=== PATIENT | male | born 1980 | race Caucasian/White ===

== ENCOUNTER 2020-04-29 11:05 | Outpatient (REF) | payer OTHER, SELFPAY ==
[2020-04-29 14:15] LABS: Alanine Aminotransferase 28 U/L (0-40); Albumin Level 4.6 g/dL (3.5-5.0); Alkaline Phosphatase 66 U/L (39-117); Anion Gap 17 (12-20); Aspartate Amino Transferase 23 U/L (5-37); Bilirubin Total 0.9 mg/dL (0.0-1.0); Blood Urea Nitrogen 11 mg/dL (9-16); Calcium 9.2 mg/dL (8.4-10.2); Carbon Dioxide 24 mmol/L (22-29); Chloride 102 mmol/L (96-108); Cholesterol 164 mg/dL; Estimated Glomerular Filt Rate > 60; Glucose Fasting 71 mg/dL (60-99); HDL Cholesterol 35 mg/dL; LDL Cholesterol Calculated 110 mg/dl; Potassium 4.7 mmol/l (3.3-5.1); Sodium 138 mmol/L (135-145); Total Protein 7.7 g/dL (6.5-8.0); Triglycerides 96 mg/dL
[2020-04-29 14:51] LABS: Syphilis Screen Nonreactive (Nonreactive)
[2020-05-02 08:06] LABS: HBc Num1 0.09 S/CO (0.00-0.79); HBsAGNum1 0.24 S/CO (0.00-0.99); Hepatitis B Core Antibody Nonreactive (Nonreactive); Hepatitis B Surface Antigen Negative (Negative)
[2020-05-02 08:32] LABS: HBS Num1 0.36 mIU/mL (0-7.99); HIV AB/AG Nonreactive (Nonreactive); HIV Num 1 0.15 S/CO (0.00-0.99); ~HepC Num1 0.18 S/CO (0.00-0.79); ~Hepatitis B Surface Antibody NONREACTIVE (Nonreactive); ~Hepatitis C Antibody Nonreactive (Nonreactive)
== END 2020-04-29 11:06 | disposition home or self-care (01) ==
LOC: HO.WFDLDS 11:05
PROVIDERS: Visit Provider Family Medicine
DX: Z00.00 Encounter for general adult medical examination without abnormal findings (principal); Z11.3 Encounter for screening for infections with a predominantly sexual mode of transmission
CPT/HCPCS: 80053; 80061; 84443; 86704; 86706; 86780; 86803; 87340; 87389

== ENCOUNTER 2021-12-05 09:26 | Outpatient (REF) | payer BC, SELFPAY ==
[2021-12-05 12:07] LABS: Appearance Urine CLEAR; Color Urine YELLOW; Glucose Urine UA NEG (NEG); Leukocyte Esterase Urine NEG (NEG); Nitrite Urine NEG (NEG); PH 5.5 (5.0-8.0); Specific Gravity - Urine 1.025 (1.005-1.025); Urine Blood NEG (NEG); Urine Ketones NEG (NEG); Urine Protein NEG (NEG-TRACE)
[2021-12-05 12:18] LABS: Alanine Aminotransferase 20 U/L (0-40); Albumin Level 4.1 g/dL (3.5-5.0); Alkaline Phosphatase 55 U/L (39-117); Anion Gap 13 (12-20); Aspartate Amino Transferase 16 U/L (5-37); Bilirubin Total 0.4 mg/dL (0.0-1.0); Blood Urea Nitrogen 15 mg/dL (9-16); Carbon Dioxide 24 mmol/L (22-29); Chloride 107 mmol/L (96-108); Cholesterol 227 mg/dL; Estimated Glomerular Filt Rate > 60; Glucose Fasting 87 mg/dL (60-99); HDL Cholesterol 42 mg/dL; LDL Cholesterol Calculated 135 mg/dl; Potassium 4.2 mmol/L (3.3-5.1); Sodium 140 mmol/L (135-145); Total Protein 7.2 g/dL (6.5-8.0); Triglycerides 252 mg/dL
[2021-12-05 12:32] LABS: Prostate Specific Antigen Scr 0.53 ng/mL (<0.05-4.0); TSH reflex Free T4 1.27 uIU/mL (0.32-4.0)
== END 2021-12-05 09:27 | disposition home or self-care (01) ==
LOC: HO.WFDLDS 09:26
PROVIDERS: Visit Provider Family Medicine
DX: Z00.00 Encounter for general adult medical examination without abnormal findings (principal); Z12.5 Encounter for screening for malignant neoplasm of prostate
CPT/HCPCS: 36415; 80053; 80061; 81003; 84153; 84443

== ENCOUNTER 2023-05-24 08:51 | Outpatient (AMB) | payer BC, SELFPAY ==
--- NOTE | 2023-05-24 08:51 | MHC.PC.OV ---
Vital Signs 05/24/23 08:53 Height 5 ft 11 in Weight 285 lb 8 oz BMI 39.8 BP 122/62 Blood Pressure Location Lt brachial Position Sitting Pulse 82 Pulse Source Pulse Oximeter Pulse Oximetry (%) 96 Oxygen Delivery Method Room Air Intake Visit Reasons: ongoing pain Intake Note: Patient is here with dull pain in left testicle that radiates to his body, pain in left front abdomen. Allergies No Known Allergies Allergy (Verified 05/24/23 08:55) Tobacco use date assessed: 05/24/23 Dental Screening Dental Screen Date: 05/24/23 Did you have a dental visit in the last 12 months?: Yes Did you have a dental problem in the last 6 months where you did not have access to dental care?: No Was dental information given to patient?: Patient has dentist HPI ongoing pain HPI Details Pt presents today with complaints of ongoing L testicular pain. Pain radiates to his body and reports pain in L front abdomen. Was diagnosed with epididymitis 02/12/22 and was treated with Levaquin. He notes pain has never fully resolved, He still reports intermittent dull aches. He also reports abdominal pain is intermittent. [facility] Social History Housing: Apartment Patient Tobacco Use Status: Former Tobacco user e-Cigarette/Vaping Use: Never Used Second Hand Smoke Exposure: No service: No Current occupational status: employed Current occupational exposures/hazards: No Cognitive needs: No Hearing needs: No Vision needs: No Questionnaire PHQ-9 Over the last 2 weeks, how often have you been bothered by any of the following problems? 1. Little interest or pleasure in doing things: more than half the days 2. Feeling down, depressed, or hopeless: several days 3. Trouble falling or staying asleep, or sleeping too much: nearly every day 4. Feeling tired or having little energy: nearly every day 5. Poor appetite or overeating: more than half the days 6. Feeling bad about yourself - or that you are a failure or have let yourself or your family down: not at all 7. Trouble concentrating on things, such as reading the newspaper or watching television: nearly every day 8. Moving or speaking so slowly that other people could have noticed. Or the opposite - being so fidgety or restless that you have been moving around a lot more than usual: not at all 9. Thoughts that you would be better off or of hurting yourself in some way: not at all Total score: 14 Depression Screening Interpretation: Positive Depression Screening Done: Yes Source: Developed by Drs. Earl Brambila, Nora Penn, Anival Okeefe and colleagues, with an educational maite from [employer]. Thrive Questionnaire Date Thrive assessed: 05/24/23 I am a: Patient What is your living situation today?: I have a steady place to live Within the past 12 months, did the food you bought not last and you didn't have the money to get more?: Never true Within the past 12 months, did you worry whether your food would run out before you got money to buy more?: Never true Do you have trouble paying for medicines?: No Do you have trouble getting transportation to medical appointments?: No Do you have trouble paying your heating and electricity bill?: No Do you have trouble taking care of your child, family member or friend?: No Do you have trouble with day-to-day activities such as bathing, preparing meals, shopping, managing finances, etc.?: No Are you currently unemployed and looking for a job?: No Are you interested in more education?: Yes AUDIT C Alcohol Use Questionnaire (AUDIT-C) 1. How often do you have a drink containing alcohol?: 2-3 times a week 2. How many drinks containing alcohol do you have on a typical day when you are drinking?: 5 or 6 3. How often do you have six or more drinks on one occasion?: Less than monthly Total Score: 6 DARYL-7 AMB Questionnaire DARYL-7 Date DARYL - 7 assessed: 05/24/23 Feeling nervous, anxious, or on edge: 1 = Several days Not being able to stop or control worryin = More than half the days Worrying too much about different things: 2 = More than half the days Trouble relaxin = Not at all Being so restless that it is hard to sit still: 1 = Several days Becoming easily annoyed or irritable: 1 = Several days Feeling afraid as if something awful might happen: 1 = Several days Total DARYL-7 score (0-4 normal; 5-9 mild; 10-14 moderate; 15-21 severe): 8 Source: Developed by Drs. Earl Brambila, Nora Penn, Anival Okeefe and colleagues, with an educational maite from [employer]. Review of Systems Const Denies chills, Denies fatigue, Denies fever(s), Denies headache(s) and Denies weakness ENT Denies dizziness and Denies headache(s) Card Denies dyspnea Resp Denies cough, Denies dyspnea, Denies wheezing and Denies other (shortness of breath) Musc Denies numbness and Denies tingling Neuro Denies dizziness, Denies headache(s), Denies numbness, Denies tingling and Denies weakness Psych Denies anxiety and Denies depression Endo Denies fatigue Aller/Immun Denies wheezing Physical exam (Primary Care) Vital Signs: Last Vital Signs Pulse 82 05/24/23 08:53 BP 122/62 05/24/23 08:53 Pulse Ox 96 05/24/23 08:53 Oxygen Delivery Method Room Air 05/24/23 08:53 BMI result Body Mass Index 39.8 Tobacco/Smoking Status: Tobacco use Status Tobacco use date assessed 05/24/23 05/24/23 08:56 Patient Tobacco Use Status Former Tobacco user 05/24/23 08:51 e-Cigarette/Vaping Use Never Used 05/24/23 08:51 PHQ-9: PHQ-9 Score PHQ-9: Total score 14 05/24/23 09:15 Depression Screening Interpretation: Positive Thrive Assessment: Date of Thrive Assessment Date Thrive assessed 05/24/23 05/24/23 09:05 Const General: well developed; No acute distress Nutritional Appearance: well nourished Orientation/consciousness: patient oriented x3 [facility] Head: Yes normocephalic and Yes atraumatic Eyes General: appearance normal, both eyes and all related structures Pupils: Equal, round and reactive pupils present EOM: EOMs intact bilaterally Resp Effort & Inspection: normal respiratory effort Neuro General: patient oriented x3 and gait normal Cranial nerves: Yes Equal, round and reactive pupils present Psych Affect: normal affect Assessment and Plan Assessment & Plan (1) Left testicular pain: Code(s): N50.812 - Left testicular pain Plan: Ongoing?left?testicular?pain?after?epididymitis?and?treatment?with?levofloxacin Testicle?is?no?longer?enlarged?or?inflamed.??Palpation?did?not?reveal?any?masses?or?lumps. No?hernias?appreciated Will?check?urine?studies Check?ultrasound Will?give?him?a?script?for?doxycycline Referred?to?Urology (2) Abdominal pain: Code(s): R10.9 - Unspecified abdominal pain Plan: Likely?referred?pain Empirically?treating?with?doxycycline He?will?let?me?know?if?not?improved Orders: Orders CT NG by PCR Today N50.812 - Left testicular pain, Z11.3 - Encounter for screening for infections with a predominantly sexual mode of transmission US scrotum Today N50.812 - Left testicular pain Referrals Urology Referral N50.812 - Left testicular pain Coding Level of Care Code Est Pt Level 3 (02616) Diagnoses Left testicular pain N50.812 Abdominal pain R10.9
[2023-05-24 08:53] VITALS: BP 122/62; PULSE 82; O2SAT 96; BMI 39.8
== END 2023-05-24 09:47 | disposition home or self-care (01) ==
PROVIDERS: PCP Family Medicine; Visit Provider Family Medicine
DX: N50.812 Left testicular pain (principal); R10.9 Unspecified abdominal pain
CPT/HCPCS: 99213

== ENCOUNTER 2023-05-24 09:37 | Outpatient (REF) | payer BC, SELFPAY ==
[2023-05-24 11:34] LABS: Appearance Urine Clear; Color Urine Yellow; Glucose Urine UA Negative (Negative); Leukocyte Esterase Urine Negative (Negative); Nitrite Urine Negative (Negative); PH 5.5 (5.0-9.0); Urine Blood Negative (Negative); Urine Ketones Negative (Negative); Urine Protein Negative (Neg-Trace)
[2023-05-24 13:27] LABS: CT PCR NOT DETECTED (Not Detect.); NG PCR NOT DETECTED (Not Detect.)
== END 2023-05-24 09:38 | disposition home or self-care (01) ==
LOC: HO.LAB 09:37
PROVIDERS: Visit Provider Family Medicine
DX: Z00.00 Encounter for general adult medical examination without abnormal findings (principal); N50.812 Left testicular pain; Z20.2 Contact with and (suspected) exposure to infections with a predominantly sexual mode of transmission
CPT/HCPCS: 0353U; 81003

== ENCOUNTER 2023-06-12 16:11 | Outpatient (REF) | payer BC, SELFPAY | END 2023-06-12 16:12 | disposition home or self-care (01) | LOC: HO.US 16:11 | PROVIDERS: PCP Family Medicine; Visit Provider Family Medicine | DX: N50.812 Left testicular pain (principal) | CPT/HCPCS: 76870 ==

== ENCOUNTER 2023-07-05 14:47 | Outpatient (AMB) | payer BC, SELFPAY ==
--- NOTE | 2023-07-05 15:00 | A.OFFVIS_ITS ---
Intake Intake Visit Reasons: Left testicular pain Intake Note: NEW Patient presents today to established treatment for Left Testicular Pain: Meds- None Allergies to Antibiotic- No Known Allergies Blood Thinner- None Timber Buyer Required: No Accompanied by: Self / Same As Patient Allergies No Known Allergies Allergy (Verified 07/05/23 15:04) HPI HPI Comments History of Present Illness Details Rafa is a 43-year-old male who is here as a new patient evaluation for complaints of chronic left testicular pain. He also complains of pain in his lower abdomen on the left side. He states he was diagnosed with epididymitis in February of 2022 and received a course of antibiotics, Levaquin He had a scrotal ultrasound done on 06/14/23 which I have reviewed, small bilateral varicoceles left testicle a few microliths noted. No signs of infection or testicular masses noted. I have discussed using Tylenol or Motrin p.r.n. as well as timed voiding. Will check ultrasound of the kidneys. [facility] Social History Housing: Apartment Patient Tobacco Use Status: Former Tobacco user e-Cigarette/Vaping Use: Never Used Second Hand Smoke Exposure: No service: No Current occupational status: employed Current occupational exposures/hazards: No Cognitive needs: No Hearing needs: No Vision needs: No Review of Systems Const All systems reviewed & are unremarkable except as noted in HPI and below Reports no additional complaints Eyes Reports no additional complaints ENT Reports no additional complaints Card Denies dyspnea Resp Denies cough and Denies dyspnea GI Reports no additional complaints Musc Reports no additional complaints Skin/Breast Denies rash and Denies unusual bruising Neuro Reports no additional complaints Psych Reports no additional complaints Endo Reports no additional complaints Antonio/Lymph Reports no additional complaints Aller/Immun Reports no additional complaints Physical Exam Const General: healthy appearing, no acute distress and well developed Orientation/consciousness: patient oriented x3 HEENT Head: Yes normocephalic and Yes atraumatic Eyes Conjunctivae: conjunctivae normal Neck Neck: Yes normal visual inspection Chest Chest palpation & inspection: normal inspection of the chest Resp Effort & Inspection: normal respiratory effort Cardio Rate: regular rate GI Inspection: Yes normal to inspection Palpation (GI): Soft to palpation Penis: normal penis Scrotum: scrotum normal Skin General skin exam: no rashes or lesions noted Neuro General: patient oriented x3 Extrem General: No pedal edema Psych Appearance: grossly normal Affect: normal affect Results AMB Urinalysis, Automated UA Leukoctes 0 Mendel/uL Last Edit by Jessica Escamilla Neil on 07/05/23 15:10 UA Nitrite Negative Last Edit by Jessica Escamilla [facility] on 07/05/23 15:10 UA Urobilinogen 0.2 mg/dL Last Edit by Jessica Escamilla [facility] on 07/05/23 15:1 0 UA Protein 30 mg/dL Last Edit by Jessica Escamilla [facility] on 07/05/23 15:10 1+ Jessica Escamilla 07/05/23 15:10 UA pH 5.5 Last Edit by Jessica Escamilla [facility] on 07/05/23 15:10 UA Blood 0 Christian/uL Last Edit by Jessica Escamilla [facility] on 07/05/23 15:10 UA Specific Wilmot 1.030 Last Edit by Jessica Escamilla [facility] on 07/05/23 15: 10 UA Ketone Negative Last Edit by Jessica Escamilla [facility] on 07/05/23 15:10 UA Bilirubin 0 mg/dL Last Edit by Jessica Escamilla [facility] on 07/05/23 15:10 UA Glucose 0 mg/dL Last Edit by Jessica Escamilla [facility] on 07/05/23 15:10 Results Reviewed Results Reviewed: Laboratory Last Values Urine pH (Auto) 5.5 07/05/23 15:05 Specific Wilmot (Auto) 1.030 07/05/23 15:05 Urine Protein (Auto) 30 mg/dL 07/05/23 15:05 Glucose (UA)(Auto) 0 mg/dL 07/05/23 15:05 Urine Ketones (Auto) Negative 07/05/23 15:05 Urine Blood (Auto) 0 Christian/uL 07/05/23 15:05 Urine Nitrite (Auto) Negative 07/05/23 15:05 Urine Bilirubin (Auto) 0 mg/dL 07/05/23 15:05 Urine Urobilinogen (Auto) 0.2 mg/dL 07/05/23 15:05 Leukocyte Esterase (Auto) 0 Mendel/uL 07/05/23 15:05 Date of Service: 06/12/23 EXAMINATION: US SCROTUM CLINICAL INFORMATION: Left testicular pain. COMPARISON: None available. TECHNIQUE: A sonogram of the scrotum was performed assessing vigil-scale appearance and color Doppler flow. Spectral Doppler analysis of the arterial and venous flow were performed in the testes bilaterally. FINDINGS: RIGHT: Right testicle measures 4.2 x 2.6 x 3.1 cm, volume 17.7 mL. A few microliths are present. Spectral Doppler analysis of the arterial and venous flow is normal in the right testis. Right epididymal head is normal in size. No right hydrocele is seen. Right varicocele. Right epididymal Doppler flow is normal. LEFT: Left testicle measures 4.1 x 2.5 x 3.5 cm, volume 18.7 mL. A few microliths are present. Spectral Doppler analysis of the arterial and venous flow is normal in the left testis. Left epididymal head is normal in size. No left hydrocele is seen. Left varicocele. Left epididymal Doppler flow is normal. IMPRESSION: Bilateral varicoceles. Assessment & Plan Assessment & Plan (1) Abdominal pain: Code(s): R10.9 - Unspecified abdominal pain (2) Left testicular pain: Code(s): N50.812 - Left testicular pain (3) History of orchitis: Code(s): Z87.438 - Personal history of other diseases of male genital organs Plan Renal ultrasound follow-up in 2 months Orders: Orders AMB Urinalysis Automated 07/05/23 Z13.9 - Encounter for screening, unspecified US retroperitoneal comp 07/05/23 R10.9 - Unspecified abdominal pain, N50.812 - Left testicular pain, Z87.438 - Personal history of other diseases of male genital organs Coding Level of Care Code New Pt Level 3 (90676) Diagnoses Abdominal pain R10.9 Left testicular pain N50.812 History of orchitis Z87.438
== END 2023-07-05 16:02 | disposition home or self-care (01) ==
PROVIDERS: PCP Family Medicine; Visit Provider Urology
DX: R10.9 Unspecified abdominal pain (principal); N50.812 Left testicular pain; Z87.438 Personal history of other diseases of male genital organs
CPT/HCPCS: 99203

== ENCOUNTER → 2023-07-05 14:47 | Outpatient (BNVA) | payer BC, SELFPAY | PROVIDERS: PCP Family Medicine; Visit Provider Urology | DX: N50.812 Left testicular pain (principal); R10.9 Unspecified abdominal pain; Z87.438 Personal history of other diseases of male genital organs | CPT/HCPCS: 81003 ==

== ENCOUNTER 2023-08-28 13:53 | Outpatient (REF) | payer BC, SELFPAY ==
--- NOTE | ~2023-08-28 | US_ITS ---
EXAMINATION: US RETROPERITONEAL COMPLETE (RENAL) CLINICAL INFORMATION: Unspecified abdominal pain. Please measure prostate. COMPARISON: None available. TECHNIQUE: Real-time imaging of the kidneys and bladder. FINDINGS: RIGHT KIDNEY: 11.8 x 5.6 x 5.8 cm (SAG x AP x TRV). The kidney is normal in size, contour, and echogenicity. Renal cortical thickness is normal. No calculi or focal parenchymal lesions. No hydronephrosis. LEFT KIDNEY: 11.9 x 5.7 x 6.2 cm (SAG x AP x TRV). The kidney is normal in size, contour, and echogenicity. Renal cortical thickness is normal. No calculi or focal parenchymal lesions. No hydronephrosis. BLADDER: Well distended and normal. Bilateral ureteral jets are demonstrated. Prevoid bladder volume is 811 mL. Postvoid bladder volume is 23.6 mL. ADDITIONAL FINDINGS: The prostate gland is not visualized. US/US retroperitoneal comp IMPRESSION: 1. Unremarkable ultrasound appearance of the kidneys. 2. The prostate gland is not presently identified with ultrasound technique.
== END 2023-08-28 13:54 | disposition home or self-care (01) ==
LOC: HO.US 13:53
PROVIDERS: PCP Family Medicine; Visit Provider Urology
DX: R10.9 Unspecified abdominal pain (principal); N50.812 Left testicular pain; Z87.438 Personal history of other diseases of male genital organs
CPT/HCPCS: 76770

== ENCOUNTER 2023-09-04 12:32 | Outpatient (AMB) | payer BC, SELFPAY ==
--- NOTE | 2023-09-04 12:52 | A.OFFVIS_ITS ---
Intake Intake Visit Reasons: 2 month follow up/ US Intake Note: Patient presents today follow-up Left Testicular Pain & Ultrasound Results: Meds- None Allergies to Antibiotic- No Known Allergies Blood Thinner- None Computer Technical Support Specialist Required: No Accompanied by: Self / Same As Patient Allergies No Known Allergies Allergy (Verified 09/04/23 12:56) HPI HPI Comments History of Present Illness Details 09/04/2023--Rafa is here for follow-up. He was initially evaluated on 07/05/2023. He complained of left-sided pain and left testicular pain. I have reviewed renal ultrasound kidneys are normal. Bladder ultrasound within normal limits, PVR within normal limits. Prostate not visualized on ultrasound. The patient states that currently he is asymptomatic. Patient denies family history of prostate cancer. Plan is to follow-up p.r.n. Review of chart: 07/05/23--Rafa is a 43-year-old male who is here as a new patient evaluation for complaints of chronic left testicular pain. He also complains of pain in his lower abdomen on the left side. He states he was diagnosed with epididymitis in February of 2022 and received a course of antibiotics, Levaquin He had a scrotal ultrasound done on 06/14/23 which I have reviewed, small bilateral varicoceles left testicle a few microliths noted. No signs of infection or testicular masses noted. I have discussed using Tylenol or Motrin p.r.n. as well as timed voiding. Will check ultrasound of the kidneys. 09/04/2023--plan: Patient states that Left-sided pain comes and goes. Discussed renal ultrasound results, kidneys within normal limits negative for stones. Symptoms may be secondary to musculoskeletal etiology. Testicular pain. Currently asymptomatic. Patient to use Tylenol or NSAIDs p.r.n. Follow-up with this office p.r.n. [facility] [place] Social History Housing: Apartment Patient Tobacco Use Status: Former Tobacco user e-Cigarette/Vaping Use: Never Used Second Hand Smoke Exposure: No service: No Current occupational status: employed Current occupational exposures/hazards: No Cognitive needs: No Hearing needs: No Vision needs: No Review of Systems Const All systems reviewed & are unremarkable except as noted in HPI and below Reports no additional complaints Eyes Reports no additional complaints ENT Reports no additional complaints Card Reports no additional complaints Resp Reports no additional complaints GI Reports no additional complaints Reports as per HPI Musc Reports no additional complaints Skin/Breast Reports system reviewed and no additional complaints, except as documented Neuro Reports no additional complaints Psych Reports no additional complaints Endo Reports no additional complaints Antonio/Lymph Reports no additional complaints Aller/Immun Reports no additional complaints Results Reviewed Results Reviewed: Date of Service: 08/28/23 US RETROPERITONEAL COMPLETE (RENAL) CLINICAL INFORMATION: Unspecified abdominal pain. Please measure prostate. COMPARISON: None available. TECHNIQUE: Real-time imaging of the kidneys and bladder. FINDINGS: RIGHT KIDNEY: 11.8 x 5.6 x 5.8 cm (SAG x AP x TRV). The kidney is normal in size, contour, and echogenicity. Renal cortical thickness is normal. No calculi or focal parenchymal lesions. No hydronephrosis. LEFT KIDNEY: 11.9 x 5.7 x 6.2 cm (SAG x AP x TRV). The kidney is normal in size, contour, and echogenicity. Renal cortical thickness is normal. No calculi or focal parenchymal lesions. No hydronephrosis. BLADDER: Well distended and normal. Bilateral ureteral jets are demonstrated. Prevoid bladder volume is 811 mL. Postvoid bladder volume is 23.6 mL. ADDITIONAL FINDINGS: The prostate gland is not visualized. IMPRESSION: 1. Unremarkable ultrasound appearance of the kidneys. 2. The prostate gland is not presently identified with ultrasound technique. Assessment & Plan Assessment & Plan (1) Abdominal pain: Code(s): R10.9 - Unspecified abdominal pain (2) Left testicular pain: Code(s): N50.812 - Left testicular pain (3) History of orchitis: Code(s): Z87.438 - Personal history of other diseases of male genital organs Plan Patient states that Left-sided pain comes and goes. Discussed renal ultrasound results, kidneys within normal limits negative for stones. Symptoms may be secondary to musculoskeletal etiology. Testicular pain. Currently asymptomatic. Patient to use Tylenol or NSAIDs p.r.n. Follow-up with this office p.r.n. Patient Instructions: The patient had an opportunity to ask questions regarding treatment plan. All questions were answered. Imaging, Laboratory studies and physical exam results were discussed and reviewed in detail. No major barriers to understanding were identified. The patient expressed understanding and agreement with the above treatment plan. The patient is aware they should contact our office by phone for worsening of their current condition or the appearance of new symptoms. Compliance is encouraged with any medications and followup testing that is ordered. It is a privilege to be allowed the opportunity to participate in the urologic care of your patient. If you have any questions or concerns regarding treatment for the above conditions please do not hesitate to contact me. The office telephone contact is [phone]. This note is constructed in part using voice recognition software. While every effort has been made to ensure accuracy vp analysis errors may have been included. Yours sincerely, Darlene Martin MD Coding Level of Care Code Est Pt Level 3 (14304) Diagnoses Abdominal pain R10.9 Left testicular pain N50.812 History of orchitis Z87.438
== END 2023-09-04 13:26 | disposition home or self-care (01) ==
PROVIDERS: PCP Family Medicine; Visit Provider Urology
DX: R10.9 Unspecified abdominal pain (principal); N50.812 Left testicular pain; Z87.438 Personal history of other diseases of male genital organs
CPT/HCPCS: 99213

== ENCOUNTER → 2023-09-04 12:32 | Outpatient (BNVA) | payer BC, SELFPAY | PROVIDERS: PCP Family Medicine; Visit Provider Urology ==

== ENCOUNTER 2025-04-02 11:47 | Outpatient (REF) | payer BC, SELFPAY ==
[2025-04-02 14:44] LABS: MANUAL DIFF FLAG NO
[2025-04-02 14:54] LABS: Hematocrit 43.2 % (42.0-52.0); Hemoglobin 14.4 g/dl (14.0-18.0); Imm Gran Abs Auto 0.02 X10*3/uL (0.00-0.03); Imm Gran Pct Auto 0.4 % (0.0-0.4); Lymphocytes Absolute Auto 1.3 X10*3/uL (1.2-4.9); Mean Corpuscular HGB Conc 33.3 g/dl (31.0-36.0); Mean Corpuscular Hemoglobin 28.6 pg (27.0-33.0); Mean Corpuscular Volume 85.9 fL (80.0-98.0); NRBC Abs Auto 0.000 X10*3/uL (0.0-0.012); NRBC Pct Auto 0.0 /100WBC (0.0-0.2); Platelet Count 206 X10*3/uL (160-400); Red Blood Count 5.03 X10*6/uL (4.60-5.80); White Blood Count 5.3 X10*3/uL (4.8-10.8)
--- OUTSIDE RECORDS SUMMARY | 2025-04-02 15:32 | XMS_ITS | Clinical Summary ---
Author Organization [facility] Address [address] [place] [id number] Phone Care Team Providers Care Theater Set Production Designer Name Role Phone Dakota Travis MD Primary Care Provider Allergies No known active allergies Medications lisinopril (PRINIVIL,ZESTR IL) 10 MG tablet Active nicotine (NICODERM CQ) 21 mg/[address] 1 patch onto the skin daily. Active chlorhexidine (PERIDEX) 0.12 % solution Use as directed 15 mL in the mouth or throat 2 (two) times a day. 120 mL 03/19/2020 Active Immunizations Immunization Administration Dates Next Due Rabies Fibroblast Culture 01/02/2022,12/26/2021, 12/22/2021 Social History Tobacco Use Types Packs/Day Years Used Date Smoking Tobacco: Some Days Smokeless Tobacco: Never Alcohol Use Standard Drinks/Week Comments Yes 12 (1 standard drink = 0.6 oz pu re alcohol) Education Answer Date Recorded Are you interested in more education? Not on annie e 10/05/2022 Are you concerned about learning? Not on file 10/05/2022 No 10/05/2022 No 10/05/2022 Digital Access Answer Date Recorded No 11/02/2022 No 11/02/2022 No 11/02/2022 Reliable internet access at home? Not on file 11/02/2022 Device with a working camera? Not on file Sex and Gender Information Value Date Recorded Sex Assigned at Male 01/28/2018 5:45 PM EDT Legal Sex Male 9:24 PM EDT Gender Identity Male 01/28/2018 5:45 PM EDT Sexual Orientation Not on file Last Filed Vital Signs Vital Sign Reading Time Taken Comments Blood Pressure 182/98 02/12/2022 11:51 AM EDT Pulse 93 02/12/2022 11:51 AM EDT Temperature 37.9 C (100.2 F) 02/12/2022 11:51 AM EDT Respiratory Rate 20 02/12/2022 11:51 AM EDT Oxygen Saturation 100% 02/12/2022 11:51 AM EDT Inhaled Oxygen Concentration - - Weight 113.4 kg (250 lb) 01/02/2022 4:18 PM EDT Height 172.7 cm (5' 8 ) 01/02/2022 4:18 PM EDT Body Mass Index 38.01 01/02/2022 4:18 PM EDT Plan of Treatment Health Maintenance Due Date Last Done Comments LIPID PANEL 1978 DEPRESSION SCREENING 1990 SMOKING Hx and SMOKELESS TOBACCO SCREENING 1991 HEPATITIS C SCREENING 1996 HIV ONE-TIME SCREENING (18-6 5 YEARS) 1996 PNEUMOCOCCAL VACCINES (0-49 years) (1 of 2 - PCV) 1997 CREATININE LEVEL 02/12/2023 02/12/2022, 01/28/2018 POTASSIUM LEVEL 02/12/2023 02/12/2022, 01/28/2018 COLOGUARD 2023 COLONOSCOPY 2023 COLORECTAL CANCER SCREENING 2023 FIT TEST 2023 FOBT 2023 SIGMOIDOSCOPY 2023 VIRTUAL COLONOSCOPY 2023 INFLUENZA VACCINE (#1) 2025 04/29/2020 COVID-19 VACCINE (3 - 2024-2 6 season) 2025 10/31/2020, 10/10/2020 Adult Td,Tdap Booster 12/20/2031 12/19/2021 , 11/15/2016 HEPATITIS A VACCINES Aged Out No long er eligible based on patient's age to complete this topic HIB VACCINES Aged Out No longer eligi ble based on patient's age to complete this topic MENINGOCOCCAL VACCINES (ACWY) Aged Out No longer eligible based on patient's age to complete this topic MENINGOCOCCAL VACCINES (B) Aged Out N o longer eligible based on patient's age to complete this topic Medical Devices Not on file Procedures Procedure Name Priority Date/Time Associated Diagnosis Comments BASIC METABOLIC PANEL STAT 02/12/2022 12:06 PM EDT from Last 3 Months or Most Recently Relevant to Health Maintenance Results * (ABNORMAL) Basic metabolic panel (02/12/2022 12:06 PM EDT) SODIUM 141 133 - 146 mmol/L [facility] CHLORIDE 105 96 - 108 mmol/L [facility] POTASSIUM 4.5 3.3 - 5.1 mmol/L [facility] CO2 27 21 - 35 mmol/L [facility] BUN 16 6 - 19 mg/dL [facility] CREATININE 0.70 0.5 - 1.5 mg/dL [facility] GLUCOSE 108(H) 70 - 99 mg/dL [facility] CALCIUM 9.1 8.4 - 10.3 mg/dL [facility] EGFR 117 >59 mL/min/1.7 3m2 [facility] Comment:Estimated glomerular filtration rate calculated using the CKD-EPI refit equation. ANION GAP 14 10 - 20 mmol/L [facility] Blood 02/12/2022 12:0 6 PM EDT 02/12/2022 12:12 PM EDT Jackie Au PA-C LAB BLOOD ORDERA BLES Final Result [facility] [address] [place] [address] from Last 3 Months or Most Recently Relevant to Health Maintenance Insurance [facility] [place] [address] [place] [address] Care Teams Theater Set Production Designer Relationship Specialty Start Date End Date Dakota Travis MD [address] [place] [address] PCP - General 02/19/21 Additional Source Comments The information contained in this document represents components of the legal health record. It is not the complete legal health record.[facility]
[2025-04-02 15:43] LABS: Alanine Aminotransferase 24 U/L (0-40); Albumin Level 4.5 g/dL (3.5-5.0); Alkaline Phosphatase 56 U/L (39-117); Anion Gap 10 (12-20); Aspartate Amino Transferase 22 U/L (5-37); Blood Urea Nitrogen 13 mg/dL (9-16); Calcium 8.8 mg/dL (8.4-10.2); Carbon Dioxide 28 mmol/L (22-29); Chloride 107 mmol/L (96-108); Cholesterol 203 mg/dL (<200); Estimated Glomerular Filt Rate > 60; HDL Cholesterol 44 mg/dL (>40); Potassium 4.1 mmol/L (3.3-5.1); Sodium 141 mmol/L (135-145); Total Protein 7.6 g/dL (6.5-8.0); Triglycerides 93 mg/dL (<150)
[2025-04-02 18:37] LABS: Appearance Urine Clear; Glucose Urine UA Negative (Negative); PH 6.5 (5.0-9.0); Specific Gravity - Urine 1.010 (1.005-1.025)
== END 2025-04-02 11:48 | disposition home or self-care (01) ==
LOC: HO.WFDLDS 11:47
PROVIDERS: PCP Family Medicine; Visit Provider Family Medicine
DX: Z00.00 Encounter for general adult medical examination without abnormal findings (principal); I10 Essential (primary) hypertension; R03.0 Elevated blood-pressure reading, without diagnosis of hypertension; G47.30 Sleep apnea, unspecified; Z12.5 Encounter for screening for malignant neoplasm of prostate
CPT/HCPCS: 36415; 80053; 80061; 81003; 82043; 82570; 84153; 84443; 85025; 96127

== ENCOUNTER 2025-04-02 11:47 | Outpatient (AMB) | payer BC, SELFPAY ==
--- NOTE | 2025-04-02 12:19 | A.OFFPC_ITS ---
Vital Signs 04/02/25 12:25 Height 5 ft 11 in Weight 365 lb 7 oz BMI 51.0 BP 116/90 H Blood Pressure Location Rt brachial Position Sitting Respiration 16 Pulse 65 Pulse Source Pulse Oximeter Temp 97.6 F Temp Source Temporal Artery Scan Pulse Oximetry (%) 98 Oxygen Delivery Method Room Air Intake Visit Reasons: Weakness /sleep referral request Intake Note: Rafa presents in the today for a physical and a sleep medicine referral. Allergies No Known Allergies Allergy (Verified 04/02/25 12:23) Tobacco use date assessed: 04/02/25 Dental Screening Dental Screen Date: 04/02/25 Did you have a dental visit in the last 12 months?: No Did you have a dental problem in the last 6 months where you did not have access to dental care?: No Was dental information given to patient?: Patient has dentist HPI Weakness /sleep referral request HPI Details 44 y/o male presents for a CPE with f/u labs and health maint. No recent labs to review. Pt notes he is concerned about sleep apnea. Pt notes his has noticed him snoring and stopped breathing at times. Blood pressure today 116/90, 65p. [facility] Social History (Updated 04/02/25 @ 12:25 by Tara Bustos [facility]) Housing: Apartment Alcohol intake: current Patient Tobacco Use Status: Former Tobacco user e-Cigarette/Vaping Use: Never Used Second Hand Smoke Exposure: No Substance Use Type: Marijuana service: No Current occupational status: employed Current occupational exposures/hazards: No Cognitive needs: No Hearing needs: No Vision needs: No Questionnaire PHQ-9 Over the last 2 weeks, how often have you been bothered by any of the following problems? 1. Little interest or pleasure in doing things: more than half the days 2. Feeling down, depressed, or hopeless: more than half the days 3. Trouble falling or staying asleep, or sleeping too much: more than half the days 4. Feeling tired or having little energy: several days 5. Poor appetite or overeating: not at all 6. Feeling bad about yourself - or that you are a failure or have let yourself or your family down: not at all 7. Trouble concentrating on things, such as reading the newspaper or watching television: several days 8. Moving or speaking so slowly that other people could have noticed. Or the opposite - being so fidgety or restless that you have been moving around a lot more than usual: not at all 9. Thoughts that you would be better off or of hurting yourself in some way: not at all Total score: 8 Depression Screening Interpretation: Positive Depression Screening Done: Yes 88725 - PHQ-9 Billing: Patient declined-do not bill Source: Developed by Drs. Earl Brambila, Nora Penn, Anival Okeefe and colleagues, with an educational maite from [employer] Thrive Questionnaire Date Thrive assessed: 04/02/25 I am a: Patient What is your living situation today?: I have a steady place to live Within the past 12 months, did the food you bought not last and you didn't have the money to get more?: Never true Within the past 12 months, did you worry whether your food would run out before you got money to buy more?: Never true Do you have trouble paying for medicines?: No Do you have trouble getting transportation to medical appointments?: No Do you have trouble paying your heating and electricity bill?: No Do you have trouble taking care of your child, family member or friend?: No Do you have trouble with day-to-day activities such as bathing, preparing meals, shopping, managing finances, etc.?: No Are you currently unemployed and looking for a job?: No Are you interested in more education?: No Please select the resources that you would like help with: None Currently or been in a relationship where the following occur: No concerns reported THRIVE Score: 0 AUDIT C Alcohol Use Questionnaire (AUDIT-C) 1. How often do you have a drink containing alcohol?: 2-4 times a month 2. How many drinks containing alcohol do you have on a typical day when you are drinking?: 5 or 6 3. How often do you have six or more drinks on one occasion?: Weekly Total Score: 7 DARYL-7 AMB Questionnaire DARYL-7 Date DARYL - 7 assessed: 04/02/25 Feeling nervous, anxious, or on edge: 3 = Nearly every day Not being able to stop or control worryin = Not at all Worrying too much about different things: 0 = Not at all Trouble relaxin = Several days Being so restless that it is hard to sit still: 0 = Not at all Becoming easily annoyed or irritable: 1 = Several days Feeling afraid as if something awful might happen: 1 = Several days Total DARYL-7 score (0-4 normal; 5-9 mild; 10-14 moderate; 15-21 severe): 6 Source: Developed by Drs. Earl Brambila, Nora Penn, Anival Okeefe and colleagues, with an educational maite from [employer] DARYL-7 Assessment Billing DARYL-7 Assessment Tool: DARYL-7 Assessment 37655 Review of Systems Const Denies chills, Denies fatigue, Denies fever(s), Denies headache(s) and Denies weakness Eyes Denies change in vision ENT Denies dizziness, Denies headache(s), Denies hearing loss, Denies nasal congestion, Denies sinus pain, Denies sinus pressure and Denies sore throat Card Denies chest pain, Denies lightheadedness, Denies dyspnea and Denies other (palpitations) Resp Denies cough, Denies dyspnea and Denies wheezing GI Denies abdominal pain, Denies melena, Denies hematochezia, Denies change in bowel habits, Denies dyspepsia and Denies nausea Denies hematuria and Denies dysuria Musc Denies abnormal gait, Denies myalgias, Denies arthralgias, Denies numbness and Denies tingling Skin/Breast Denies rash, Denies unusual bruising and Denies wounds Neuro Denies abnormal gait, Denies dizziness, Denies headache(s), Denies memory loss, Denies numbness, Denies Sensory deficit (Neuro), Denies tingling and Denies weakness Psych Denies anxiety, Denies depression and Denies memory loss Endo Denies cold intolerance, Denies fatigue, Denies heat intolerance, Denies polydipsia and Denies polyuria Antonio/Lymph Denies easy bleeding and Denies easy bruising Aller/Immun Denies wheezing Physical exam (Primary Care) Vital Signs: Last Vital Signs Temp 97.6 F 04/02/25 12:25 Pulse 65 04/02/25 12:25 Resp 16 04/02/25 12:25 BP 116/90 H 04/02/25 12:25 Pulse Ox 98 04/02/25 12:25 Oxygen Delivery Method Room Air 10/24/25 12:25 BMI result Body Mass Index 51.0 Tobacco/Smoking Status: Tobacco use Status Tobacco use date assessed 04/02/25 04/02/25 12:29 Patient Tobacco Use Status Former Tobacco user 04/02/25 12:29 e-Cigarette/Vaping Use Never Used 04/02/25 12:29 PHQ-9: PHQ-9 Score PHQ-9: Total score 8 04/02/25 12:53 Depression Screening Interpretation: Positive Thrive Assessment: Date of Thrive Assessment Date Thrive assessed 04/02/25 04/02/25 12:29 Currently or been in a relationship where the following occur: No concerns reported Const General: no acute distress, well developed, alert and awake Nutritional Appearance: well nourished Orientation/consciousness: patient oriented x3 HENMT Head: Yes normocephalic and Yes atraumatic Ears: hearing grossly normal bilaterally and TM's normal bilaterally General nose exam: Normal external nose present and Normal nares present Mouth: Normal oral and palatal mucosa present and moist mucous membranes Teeth and gingiva: dentition normal Throat: Yes posterior oropharynx normal Eyes General: appearance normal, both eyes and all related structures Pupils: Equal, round and reactive pupils present and Pupil accommodation reflex normal EOM: EOMs intact bilaterally Neck Neck: Yes normal visual inspection, Yes no lymphadenopathy and Yes trachea midline Thyroid: Thyroid normal Carotids: no bruits Lymphatic: no lymphadenopathy noted Chest Chest palpation & inspection: normal inspection of the chest Resp Effort & Inspection: normal respiratory effort Auscultation: clear to auscultation bilaterally Cardio Rate: regular rate Rhythm: regular rhythm Heart sounds: S1 normal heart sound present, S2 normal heart sound present, no gallops, no murmurs and no rubs Bruits: no abdominal aortic bruits and no carotid bruits GI Palpation (GI): No Abdominal aortic bruit present, Soft to palpation, nontender, No hepatosplenomegaly present and No Rebound tenderness present Auscultation: normal bowel sounds General: Yes no CVA tenderness Back/Spine/Pelvis Back: no CVA tenderness Cervical Spine: cervical ROM normal and No Cervical spine tenderness Thoracic/Lumbar Spine: thoraco-lumbar ROM normal, No pain with thoraco-lumbar ROM, No thoracic spinal tenderness and No lumbar spinal tenderness Skin Lesions: no lesions Rashes: no rashes Trauma: no lacerations or abrasions Wounds: no wounds Nails: normal Neuro General: patient oriented x3 Cranial nerves: Yes Equal, round and reactive pupils present Cognition (Neuro): normal cognition Gait exam (Neuro): Normal gait present Motor exam (neuro): 5/5 motor strength present throughout Sensory Exam: No Sensory deficit (Neuro) Deep tendon reflexes (DTR's): Right patellar reflex intensity grade: 2+ and Left patellar reflex intensity grade: 2+ Extrem General: Yes normal to inspection and No edema Psych Appearance: grossly normal Affect: normal affect Attitude: cooperative Thought process: Normal thought process present Coding Level of Care Code Est Pt Level 3 (41987) Est Pt Prev Care 40-64y(29209) Diagnoses Annual physical exam Z00.00 Elevated blood pressure reading R03.0 Witnessed episode of apnea R06.81 Screening for colon cancer Z12.11 Screening for prostate cancer Z12.5 Additional Codes DARYL-7 Assessment Billing - DARYL-7 Assessment Tool: DARYL-7 Assessment 99599 ([id number]) Assessment & Plan Assessment & Plan (1) Annual physical exam: Code(s): Z00.00 - Encounter for general adult medical examination without abnormal findings Category: Medical Plan: 44-year-old male presents for complete physical exam Encouraged healthy diet with active lifestyle and plenty of exercise (2) Elevated blood pressure reading: Code(s): R03.0 - Elevated blood-pressure reading, without diagnosis of hypertension Category: Medical Plan: Elevated diastolic blood pressure reading Patient is obese and has likely sleep apnea. Work on diet low in salt/sodium. Work on weight loss and exercise Sending him to sleep medicine (3) Witnessed episode of apnea: Code(s): R06.81 - Apnea, not elsewhere classified Category: Medical Plan: Referring patient to sleep medicine for sleep apnea Sleep on his side Work on weight loss (4) Screening for colon cancer: Code(s): Z12.11 - Encounter for screening for malignant neoplasm of colon Category: Medical Plan: Referred to Gastroenterology (5) Screening for prostate cancer: Code(s): Z12.5 - Encounter for screening for malignant neoplasm of prostate Category: Medical Plan: PSA ordered Orders: Orders Comprehensive [place]. Panel Fast Today Z00.00 - Encounter for general adult medical examination without abnormal findings Lipid Panel Today Z00.00 - Encounter for general adult medical examination without abnormal findings UA CC w/rflx Micro + Cult Today Z00.00 - Encounter for general adult medical examination without abnormal findings Complete Blood Count Auto Diff Today Z00.00 - Encounter for general adult medical examination without abnormal findings Prostate Specific Antigen Scr Today Z12.5 - Encounter for screening for malignant neoplasm of prostate Microalbumin, Random (w Creat) Today I10 - Essential (primary) hypertension TSH reflex Free T4 Today Z00.00 - Encounter for general adult medical examination without abnormal findings Referrals Gastroenterology Referral Z12.11 - Encounter for screening for malignant neoplasm of colon Sleep Medicine Referral G47.30 - Sleep apnea, unspecified, R06.81 - Apnea, not elsewhere classified
[2025-04-02 12:25] VITALS: BP 116/90; PULSE 65; RESP 16; TEMP 36.4; O2SAT 98; BMI 51.0
== END 2025-04-02 13:23 | disposition home or self-care (01) ==
PROVIDERS: PCP Family Medicine; Visit Provider Family Medicine
DX: Z00.00 Encounter for general adult medical examination without abnormal findings (principal); R03.0 Elevated blood-pressure reading, without diagnosis of hypertension; R06.81 Apnea, not elsewhere classified; Z12.11 Encounter for screening for malignant neoplasm of colon; Z12.5 Encounter for screening for malignant neoplasm of prostate

== ENCOUNTER 2025-04-23 11:15 | Outpatient (AMB) | payer BC, SELFPAY ==
--- NOTE | 2025-04-23 11:29 | MHC.OFFVIS ---
Vital Signs 04/23/25 11:35 Height 5 ft 11 in Weight 284 lb 4 oz BMI 39.6 BP 144/96 H Blood Pressure Location Lt brachial Position Sitting Pulse 77 Pulse Source Pulse Oximeter Pulse Oximetry (%) 97 Oxygen Delivery Method Room Air Intake Visit Reasons: INP-Sleep apnea, Apnea, not elsewhere classified Intake Note: Patient presents [employer] LEAH. Pt notes he is concerned about sleep apnea. Pt notes his has noticed him snoring and stopped breathing at times. Goes to bed 8pm wakes up 3:30-5am. Wakes up 5-15times a night. No Naps/headaches. NO history of sleep studies. Accompanied by: Self / Same As Patient Allergies No Known Allergies Allergy (Verified 04/23/25 11:37) HPI Comments Details: 44 year old male is referred to us for an evaluation of LEAH by his PCP Dr. Travis. He snores loudly, gasps for air, has witnessed apneas, for years now. He has not tried any sleep aids. He goes to bed at 8pm and wakes up at 3:30 am to 5am, has 5-15 arousals at night, will toss and turn, uses the bathroom, drinks water. He wakes up feeling fatigued in the mornings. Denies napping, has vivid dreams, wild lucid while on nicotine patches. Denies headaches, bruxism, has mild acid reflux with burning in the chest, wakes him up in the middle. Memory is stable, has some brain fog. Mood is low, struggles with anxiety and depression, BP is elevated today denies panic attacks, sweating. Restless leg symptoms r. thigh lateral numbness, sensory deficits gets cold, waxes and wanes, worse in the evening, has sciatica. Denies injuries MVA. R. 5th digit, sensitive to touch, lateral side, 10/10 hot needle like bolt of lighting, locally comes and goes, worse if he taps something. Denies weakness, dropping things, and injuries. Diet is stable, lost some weight, since Jul 2024, was 301lbs and now is 284, eats a vegetarian diet, hydrates daily, walks 9miles for work and at lunch breaks. He smoked 1/2 pack to 1 pack of cigarettes and quit one year ago. Rarely uses MJ, edibles socially, and has 5-10 beers on the weekends socially. Denies FH of alzheimers, movement disorders, seizures, strokes, [place]. [facility] Social History Housing: Apartment Alcohol intake: current Patient Tobacco Use Status: Former Tobacco user e-Cigarette/Vaping Use: Never Used Second Hand Smoke Exposure: No Substance Use Type: Marijuana service: No Current occupational status: employed Current occupational exposures/hazards: No Cognitive needs: No Hearing needs: No Vision needs: No Physical Exam Vital Signs: Last Vital Signs Pulse 77 04/23/25 11:35 BP 144/96 H 04/23/25 11:35 Pulse Ox 97 04/23/25 11:35 Oxygen Delivery Method Room Air 04/23/25 11:35 BMI result Body Mass Index 39.6 Const General: cooperative, comfortable and no acute distress Orientation/consciousness: patient oriented x3 HEENT Face and sinus: Yes normal facial exam Teeth and gingiva: other (mallmapti score is 3) Eyes Pupils: Equal, round and reactive pupils present Neck Neck: Yes full ROM Resp Effort & Inspection: normal respiratory effort and able to speak in complete sentences Neuro General: patient oriented x3 and moves all extremities Cranial nerves: Yes Equal, round and reactive pupils present, Yes Normal accommodation reflex present, Yes Normal facial strength present, Yes Midline tongue present, Yes Ability to bilaterally rotate head present and Yes Ability to bilaterally elevate shoulders present Cognition (Neuro): normal cognition Gait exam (Neuro): Normal gait present Motor exam (neuro): 5/5 motor strength present throughout and Normal motor muscle tone present throughout Psych Appearance: grossly normal Speech and movement: Normal speech and movement present Thought process: Normal thought process present Results Reviewed Results Reviewed: labs reviewed with pt Assessment & Plan Assessment & Plan (1) Excessive daytime sleepiness: Code(s): G47.19 - Other hypersomnia Category: Medical (2) Thigh numbness: Comment: sciatica pain ? meralgia paresthetica LCFN? Code(s): R20.0 - Anesthesia of skin Category: Medical (3) Finger numbness: Code(s): R20.0 - Anesthesia of skin Category: Medical (4) Numbness and tingling in right hand: Comment: Cubital tunnel/ Tennis elbow Code(s): R20.0 - Anesthesia of skin; R20.2 - Paresthesia of skin Category: Medical Plan HST r/o LEAH Labs reviewed with pt. EMG NCS r. pinky 5th digit pain, and numbness, r. leg sesory deficits (will monitor) Magnesium 200mg daily at bedtime F/U in 3 months. Orders: Orders NE electromyogram (EMG) Today R20.0 - Anesthesia of skin NE nerve conduction velocity Today R20.0 - Anesthesia of skin NE electromyogram (EMG) Today R20.0 - Anesthesia of skin, R20.2 - Paresthesia of skin NE nerve conduction velocity Today R20.0 - Anesthesia of skin, R20.2 - Paresthesia of skin Medications: New magnesium 200 mg PO DAILY 120 tabs 2RF sleep difficulties 4 months MDD 200mg R20.0 - Anesthesia of skin Patient Instructions: Sleep Hygiene provided: set a scheduled bedtime and wake time to help regulate the circadian rhythm and balance the release of pituitary hormones. Sleep in a dark room, temperatures below 68 degrees, and no devices n bed. Limit caffeinated products 6 hours prior to bed, and limit fluids 2-4 hours prior to bed. Gentle night yoga, diffusing essential oils, and playing soft music can be relaxing. Coding Level of Care Code New Pt Level 4 (24006) Diagnoses Excessive daytime sleepiness G47.19 Thigh numbness R20.0 Finger numbness R20.0 Numbness and tingling in right hand R20.0; R20.2 Sleep Questionnaire Difficulty falling asleep: Yes Difficulty staying asleep?: Yes Number of arousals: 5-15 Snoring: Yes Witnessed apneas: Yes Gasping arousals: Yes Nocturia: Yes (improved with less water intake now) GERD: Yes Vivid dreams: Yes Acting out dreams: No Abnormal behavior in sleep: No Abnormal movements in sleep: No Morning headaches: No Excessive daytime sleepiness: Yes Daytime naps: No Restless legs: Yes Hallucinations: No Sleep paralysis: No Drop attacks: No Sleep Study: No CPAP: No
[2025-04-23 11:35] VITALS: BP 144/96; PULSE 77; O2SAT 97; BMI 39.6
--- OUTSIDE RECORDS SUMMARY | 2025-04-23 17:19 | XMS_ITS | Clinical Summary ---
Author Organization [facility] Address [address] [place] [id number] Phone Care Team Providers Care Veterinary Practice Manager Name Role Phone Dakota Travis MD Primary [...] on patient's age to complete this topic IPV VACCINES Aged Out No longer eligi ble [...] Date/Time Associated Diagnosis Comments BASIC METABOLIC PANEL (BMP) STAT 02/12/2022 12:06 PM EDT from Last 3 Months or Most Recently Relevant to Health Maintenance Results * (ABNORMAL) Basic metabolic panel (02/12/2022 12:06 PM EDT) SODIUM 141 133 - 146 mmol/L [facility] CHLORIDE 105 96 - 108 mmol/L [facility] POTASSIUM 4.5 3.3 - 5.1 mmol/L [facility] CO2 27 21 - 35 mmol/L [facility] BUN 16 6 - 19 mg/dL [facility] CREATININE 0.70 0.5 - 1.5 mg/dL [facility] GLUCOSE 108(H) 70 - 99 mg/dL [facility] CALCIUM 9.1 8.4 - 10.3 mg/dL [facility] EGFR 117 >59 mL/min/1.7 3m2 [facility] Comment:Estimated glomerular filtration rate calculated using the CKD-EPI refit equation. ANION GAP 14 10 - 20 mmol/L [facility] Blood 02/12/2022 12:0 6 PM EDT 02/12/2022 12:12 PM EDT Jackie Au PA-C LAB BLOOD BKR OR DERABLES Final Result [facility] [address] [place] [address] from Last 3 Months or Most Recently Relevant to Health Maintenance Insurance [facility] Care Teams Veterinary Practice Manager Relationship Specialty Start Date End Date Dakota Travis MD PCP - General 02/19/21 Additional Source Comments The information contained in this document represents components of the legal health record. It is not the complete legal health record.[facility]
== END 2025-04-23 12:18 | disposition home or self-care (01) ==
LOC: HO.HSMS 11:16
PROVIDERS: PCP Family Medicine; Visit Provider Physician Assistant Medical
DX: G47.19 Other hypersomnia (principal); R20.0 Anesthesia of skin; R20.2 Paresthesia of skin
CPT/HCPCS: 99204

== ENCOUNTER 2025-04-28 09:35 | Outpatient (AMB) | payer BC, SELFPAY ==
--- NOTE | 2025-04-28 09:27 | A.OFFPC_ITS ---
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 Labs drawn 04/02/25. Reviewed labs with pt. Triglycerides 93. TC 203. LDL 141. HDL 44. PSA 0.24. PFSH Social History Housing: Apartment Alcohol intake: current Patient Tobacco Use Status: Former Tobacco user e-Cigarette/Vaping Use: Never Used Second Hand Smoke Exposure: No Substance Use Type: Marijuana service: No Current occupational status: employed Current occupational exposures/hazards: No Cognitive needs: No Hearing needs: No Vision needs: No Questionnaire Thrive Questionnaire Date Thrive assessed: 04/02/25 DARYL-7 AMB Questionnaire DARYL-7 Date DARYL - 7 assessed: 04/02/25 Source: Developed by Drs. Earl Brambila, Nora Penn, Anival Okeefe and colleagues, with an educational maite from [employer]. Physical exam (Primary Care) Tobacco/Smoking Status: Tobacco use Status Tobacco use date assessed 04/02/25 04/28/25 09:29 Patient Tobacco Use Status Former Tobacco user 04/28/25 09:29 e-Cigarette/Vaping Use Never Used 04/28/25 09:29 Thrive Assessment: Date of Thrive Assessment Date Thrive assessed 04/02/25 04/28/25 09:29 Telehealth Telehealth Telehealth Platform: Telephone Location of provider rendering services: practice address Location of patient: address on file Patient Identification confirmed using: Name, : Yes Telehealth method: voice only Patient verbally consented to treatment: Yes Patient verbally consented to billing insurance company: Yes Patient informed of any privacy concerns related to visit: Yes Minutes spent on Phone/Video with Pt.: 7 Coding Level of Care Code Tele Est Pt Level 2 (30193) Diagnoses Hyperlipidemia E78.5 Screening for prostate cancer Z12.5 Assessment & Plan Assessment & Plan (1) Hyperlipidemia: Code(s): E78.5 - Hyperlipidemia, unspecified Category: Medical Plan: LDL cholesterol is too high. Goal is less than 100 Work on a diet low in saturated fats and cholesterol Patient wants to continue working on weight loss Will recheck lipids in a few months. Will consider medication if he is unable to make significant progress (2) Screening for prostate cancer: Code(s): Z12.5 - Encounter for screening for malignant neoplasm of prostate Category: Medical Plan: PSA is within normal range Will continue screening Orders: Orders Lipid Panel Today E78.5 - Hyperlipidemia, unspecified, Z00.00 - Encounter for general adult medical examination without abnormal findings Comprehensive [place]. Panel Fast Today E78.5 - Hyperlipidemia, unspecified, Z00.00 - Encounter for general adult medical examination without abnormal findings
--- OUTSIDE RECORDS SUMMARY | 2025-04-28 17:42 | XMS_ITS | Clinical Summary ---
Author Organization [facility] Address [address] [place] [phone] Phone Care Team Providers Care Tax Evaluator Name Role Phone Dakota Travis MD Primary [...] EDT) SODIUM 141 133 - 146 mmol/L [facility] CHLORIDE 105 96 - 108 mmol/L [facility] POTASSIUM 4.5 3.3 - 5.1 mmol/L [facility] CO2 27 21 - 35 mmol/L [facility] BUN 16 6 - 19 mg/dL [facility] CREATININE 0.70 0.5 - 1.5 mg/dL [facility] GLUCOSE 108(H) 70 - 99 mg/dL [facility] CALCIUM 9.1 8.4 - 10.3 mg/dL [facility] EGFR 117 >59 mL/min/1.7 3m2 [facility] Comment:Estimated glomerular filtration rate calculated using the CKD-EPI refit equation. ANION GAP 14 10 - 20 mmol/L [facility] Blood 02/12/2022 12:0 6 PM EDT 02/12/2022 12:12 PM EDT Jackie Au PA-C LAB BLOOD BKR OR DERABLES Final Result [facility] [address] [place] [address] from Last 3 Months or Most Recently Relevant to Health Maintenance Insurance [facility] [address] [address] Care Teams Tax Evaluator Relationship Specialty Start Date End Date Dakota Travis MD PCP - General 02/19/21 Additional Source Comments The information contained in this document represents components of the legal health record. It is not the complete legal health record.[facility]
== END 2025-04-28 17:05 | disposition home or self-care (01) ==
LOC: HO.HMCFM 09:36
PROVIDERS: PCP Family Medicine; Visit Provider Family Medicine
DX: E78.5 Hyperlipidemia, unspecified (principal); Z12.5 Encounter for screening for malignant neoplasm of prostate

== ENCOUNTER 2025-05-18 08:52 | Outpatient (REF) | payer BC, SELFPAY ==
--- NOTE | 2025-05-18 08:55 | EMG_ITS ---
Chief complaint: Right fifth digit numbness, right thigh numbness Referred by:?Janene Warner Procedure done: Right upper extremity and right lower extremity NCS/EMG Right median and ulnar motor studies were performed. Right tibial and peroneal motor studies were performed with F responses and tibial H-reflex. Right median and and ulnar mixed sensory, radial sensory, and superficial peroneal and sural sensory studies were performed. Tibial H-reflex was obtained and needle examination was performed. Findings: Right median mixed distal latencies was mildly prolonged. There was mild slowing of peroneal motor response across the knee with mild slowing and significant reduction of amplitude noted on superficial peroneal study on that side. Impression: 1. Mild right median neuropathy across carpal tunnel 2. [id number] right peroneal neuropathy across the knee [place] [address] 1 extremity [facility]
== END 2025-05-18 08:53 | disposition home or self-care (01) ==
LOC: HO.NEURO 08:52
PROVIDERS: PCP Family Medicine; Visit Provider Physician Assistant Medical
DX: R20.0 Anesthesia of skin (principal)
CPT/HCPCS: 95886; 95911

== ENCOUNTER → 2025-05-18 08:55 | Outpatient (BNV) | payer BC, SELFPAY | PROVIDERS: PCP Family Medicine; Visit Provider Psychiatry & Neurology Neurology | DX: R20.0 Anesthesia of skin (principal) | CPT/HCPCS: 95886; 95911 ==